=== PATIENT | male | born 1995 | race African-American/Black ===

== ENCOUNTER 2022-12-05 08:14 | Emergency (ER) | payer OTHER ==
[2022-12-05 08:50] VITALS: BP 141/67
[2022-12-05] MEDS ORDERED: PROPARACAINE 0.5% OPHTH DROPS 15 ML EACHEYE STA (09:21)
== END 2022-12-05 09:22 | disposition left against medical advice (07) ==
LOC: ED 08:14
DX: Z53.21 Procedure and treatment not carried out due to patient leaving prior to being seen by health care provider (principal)